=== PATIENT | male | born 1985 | race Caucasian/White ===

== ENCOUNTER 2021-07-25 16:19 | Inpatient (IN) | payer SELFPAY ==
[~2021-07-25] VITALS: Ht 152.4 cm; Wt 71.1 kg
[~2021-07-25 16:19] MED LIST: LORTAB 5/500 501 TAB PO; NO HOME MEDICATIONS
[2021-07-25 17:34] LABS: MEAN CELL VOLUME 107 fl (80.0-100.0); MEAN CORPUSCULAR HGB CONC 35 g/dl (33.0-37.0); MEAN PLATELET VOLUME 9.2 fl (7.4-10.4); PLATELET COUNT 121 K/mm3 (130-400); RED BLOOD COUNT 2.17 M/mm3 (4.20-5.60); REDCELL DISTRIBUTION WIDTH-CV 17.9 % (11.5-14.5)
[2021-07-25 17:48] LABS: HEMATOCRIT 23.3 % (42.0-52.0); HEMOGLOBIN 8.1 g/dl (13.5-18.0); MEAN CORPUSCULAR HEMOGLOBIN 37 pg (27-31)
[2021-07-25 17:54] LABS: ALBUMIN 1.5 gm/dL (3.5-5.0); BILIRUBIN,TOTAL 9.9 mg/dL (0.2-1.2); C-REACTIVE PROTEIN 3.91 mg/dL (0.00-0.50); CREATININE, serum 0.95 mg/dL (0.72-1.25); POTASSIUM 3.9 mmol/L (3.5-4.5); TOTAL PROTEIN 6.4 gm/dL (6.2-8.1)
[2021-07-25 18:00] LABS: TROPONIN-I 0.014 ng/mL (0.00-0.033)
[2021-07-25 18:39] LABS: ANISOCYTOSIS 1+; BAND 20 % (0-10); HYPOCHROMIA 1+; LYMPHOCYTE 4 % (20.0-51.0); NEUTROPHILS 76 % (42.0-75.2); PLATELET ESTIMATE NORMAL (NORMAL); TARGET CELLS 1+
[2021-07-25 19:27] LABS: INR 3.7 (0.8-3.0)
[2021-07-26] VITALS (12 sets, daily range): BP systolic 117–148; BP diastolic 71–87; PULSE 98–115; TEMP 97–98.9
--- NOTE | 2021-07-26 01:26 | NUR ---
PT TO FLOOR PER CART. C/O ABDOMEN PAIN X 1 MONTH. CLAIMS TO THE HAVE STOPPED DRINKING BEER 5 WEEKS AGO. ABD DISTENDED AND TIGHT. PASSING GAS. ORDERS REVIEWED. CLAIMS NO MEDICAL HX OR HOMEMEDS.
[2021-07-26 06:50] LABS: INR 3.7 (0.8-3.0); PROTHROMBIN TIME 41.4 SECONDS (9.7-12.8)
[2021-07-26 06:54] LABS: BASO % 0.2 % (0.0-2.0); EOS # 0.2 K/mm3 (0.0-0.7); GRAN # 13.8 K/mm3 (1.4-6.5); GRAN % 85.6 % (42.2-75.2); LYMPH % 6.1 % (20.0-51.0); MEAN CELL VOLUME 109 fl (80.0-100.0); MEAN CORPUSCULAR HGB CONC 34 g/dl (33.0-37.0); MEAN PLATELET VOLUME 9.9 fl (7.4-10.4); MONO # 1.1 K/mm3 (0.1-0.6); MONO % 6.7 % (1.7-9.3); PLATELET COUNT 97 K/mm3 (130-400); RED BLOOD COUNT 1.83 M/mm3 (4.20-5.60); REDCELL DISTRIBUTION WIDTH-CV 17.6 % (11.5-14.5)
[2021-07-26 07:06] LABS: MEAN CORPUSCULAR HEMOGLOBIN 37 pg (27-31)
[2021-07-26 07:07] LABS: HEMATOCRIT 19.9 % (42.0-52.0)
[2021-07-26 07:08] LABS: HEMOGLOBIN 6.8 g/dl (13.5-18.0)
[2021-07-26 07:12] LABS: ALBUMIN 1.7 gm/dL (3.5-5.0); BILIRUBIN,TOTAL 7.6 mg/dL (0.2-1.2); CALCIUM 6.8 mg/dL (8.4-10.2); POTASSIUM 3.7 mmol/L (3.5-4.5); TOTAL PROTEIN 5.6 gm/dL (6.2-8.1)
--- NOTE | 2021-07-26 08:00 | NUR ---
Patient laying in bed sleeping, easily awakened with verbal command. A&Ox4. VSS. IV CDI. Denies pain and discomfort. Lips cracked and red from bleeding. Will notify doctor to get additional orders. No further needs expressed. Call light within reach
--- NOTE | 2021-07-26 11:34 | NUR ---
First visit from the patent searcher. No needs right now.
--- NOTE | 2021-07-26 15:50 | NUR ---
computer networker met with patient at bedside to discuss discharge plan. Patient currently lives at home alone here in [facility]. He is independent with his activities of daily living and does not utilize any DME at home to assist with mobility. He has no oxygen needs at home. Patient does not currently have a PCP and gets any medications through [facility]. Patient does not have a DPOA-HC established at this time. Patient is unmarried and has no children. Education is provided and patient verbalizes that he is "unwilling" to complete one at this time. Once medically ready, patient is planning on returning home. Discharge plan: Home; patient will need PCP established
--- NOTE | 2021-07-26 16:29 | NUR ---
Per Eladio with financial counseling, patient does not qualify for [facility] but will complete a financial assistance application for the hospital with the patient.
--- NOTE | 2021-07-26 17:32 | NUR ---
Bloos transfusion started, patient A&Ox4. VSS. IV CDI. Denies pain and discomfort. VS monitored per protocol. No further needs expressed. Call light within reach
--- NOTE | 2021-07-26 17:46 | NUR ---
Nurse at the bedside first 15 minutes of blood transfusion. VSS. IV CDI. Denies pain and discomfort. Patient tolerating well. Call light within reach. Will continue to monitor
--- NOTE | 2021-07-26 22:18 | NUR ---
ALERT AND OX4. BLOOD TRANSFUSING AT SHIFT CHANGE AND COMPLETE BY THIS RN. DENIES ANY S/S OF REACTIVE, AFEBRILE. H/H WILL RECHECK. PT INS TO BE NPO AT MIDNIGHT FOR POSSIBLE PARACENTESIS PENDING AM INR LEVEL. DENIES PAIN N/V/D. PM MEDS GIVEN, WORKING ON DINNER. CALL LIGHT WI REACH.
[2021-07-26 22:30] LABS: HEMATOCRIT 23.1 % (42.0-52.0)
[2021-07-27 00:15] VITALS: BP 125/80; PULSE 98; TEMP 97.9
[2021-07-27 04:20] VITALS: BP 126/78; PULSE 98; TEMP 97.5
[2021-07-27 06:46] LABS: MEAN CORPUSCULAR HGB CONC 35 g/dl (33.0-37.0); MEAN PLATELET VOLUME 9.9 fl (7.4-10.4); PLATELET COUNT 102 K/mm3 (130-400); RED BLOOD COUNT 2.15 M/mm3 (4.20-5.60); REDCELL DISTRIBUTION WIDTH-CV 18.9 % (11.5-14.5)
[2021-07-27 06:50] LABS: HEMATOCRIT 22.4 % (42.0-52.0); HEMOGLOBIN 7.8 g/dl (13.5-18.0); MEAN CELL VOLUME 104 fl (80.0-100.0); MEAN CORPUSCULAR HEMOGLOBIN 36 pg (27-31)
[2021-07-27 07:05] LABS: ALBUMIN 1.6 gm/dL (3.5-5.0); BILIRUBIN,TOTAL 6.7 mg/dL (0.2-1.2); CALCIUM 6.9 mg/dL (8.4-10.2); CREATININE, serum 0.83 mg/dL (0.72-1.25); POTASSIUM 3.5 mmol/L (3.5-4.5); TOTAL PROTEIN 5.7 gm/dL (6.2-8.1)
[2021-07-27 07:36] LABS: PROTHROMBIN TIME 34.1 SECONDS (9.7-12.8)
[2021-07-27 08:15] VITALS: BP 128/82; PULSE 102; TEMP 98.2
[2021-07-27 08:54] LABS: BAND 8 % (0-10); EOSINOPHIL 4 % (0-4); LYMPHOCYTE 8 % (20.0-51.0); NEUTROPHILS 73 % (42.0-75.2); TEAR DROP CELLS 1+
--- NOTE | 2021-07-27 08:54 | NUR ---
PATIENT DOWN FOR PARACENTESIS
[2021-07-27 08:55] LABS: PLATELET ESTIMATE DECREASED (NORMAL)
[2021-07-27 10:37] LABS: PERITONEAL -POLYMORPHONUCLEAR 49.6 % (0-25)
[2021-07-27 11:37] VITALS: BP 128/82; PULSE 100; TEMP 98.1
[2021-07-27 16:46] VITALS: BP 120/75; PULSE 92; TEMP 97.9
--- NOTE | 2021-07-27 19:02 | NUR ---
Patient has had an ok day. Para completed. 4L taken off. Albumin infused. Patient denies any pain, discomfort, SOA, or further needs at this time. VSS. Patient A&O. Call light in reach.
[2021-07-27 20:14] VITALS: BP 120/66; PULSE 102; TEMP 98.4
--- NOTE | 2021-07-27 22:01 | NUR ---
Patient assessed around 194. Alert and oriented, and able to make needs known. Denies pain and discomfort. Peripheral INT to left AC. Denies SOB and dyspnea. LS CTA. HRR. BSAx4. No edema. Voices no questions, needs, or concerns at this time. In bed with call light within reach.
[2021-07-28] VITALS (7 sets, daily range): BP systolic 115–136; BP diastolic 74–81; PULSE 87–102; TEMP 97.8–99.3
[2021-07-28 03:45] LABS: COLLECTION METHOD CLEAN CATCH
[2021-07-28 03:55] LABS: SQUAMOUS EPITHELIAL None Seen /hpf (0-10); URINE BACTERIA Rare /hpf (NONE SEEN)
[2021-07-28 03:57] LABS: PH 6 (5-8); URINE APPEARANCE Clear (CLEAR/HAZY); URINE COLOR Yellow (YELLOW); URINE PROTEIN(semi-quant) Negative (NEGATIVE)
[2021-07-28 03:58] LABS: URINE BILIRUBIN Negative (NEGATIVE); URINE BLOOD 3+ (NEGATIVE); URINE GLUCOSE Negative (NEGATIVE); URINE KETONE Negative (NEGATIVE); URINE LEUKOCYTE ESTERASE Negative (NEGATIVE); URINE NITRATE Negative (NEGATIVE)
[2021-07-28 04:08] LABS: CERULOPLASMIN 22 mg/dL (20-60)
--- NOTE | 2021-07-28 06:02 | NUR ---
Patient has denied having pain and discomfort this shift. Voices no questions, needs, or concerns at this time. In bed with call light within reach.
[2021-07-28 06:37] LABS: BASO # 0.1 K/mm3 (0.0-0.2); BASO % 0.6 % (0.0-2.0); EOS # 0.5 K/mm3 (0.0-0.7); EOS % 6.3 % (0.0-4.0); GRAN # 4.6 K/mm3 (1.4-6.5); GRAN % 53.8 % (42.2-75.2); LYMPH # 2.1 K/mm3 (1.2-3.4); LYMPH % 24.6 % (20.0-51.0); MEAN CELL VOLUME 102 fl (80.0-100.0); MEAN CORPUSCULAR HGB CONC 35 g/dl (33.0-37.0); MEAN PLATELET VOLUME 9.3 fl (7.4-10.4); MONO # 1.2 K/mm3 (0.1-0.6); MONO % 13.9 % (1.7-9.3); PLATELET COUNT 87 K/mm3 (130-400); RED BLOOD COUNT 2.28 M/mm3 (4.20-5.60); REDCELL DISTRIBUTION WIDTH-CV 19.4 % (11.5-14.5)
[2021-07-28 06:45] LABS: HEMATOCRIT 23.3 % (42.0-52.0); HEMOGLOBIN 8.1 g/dl (13.5-18.0); MEAN CORPUSCULAR HEMOGLOBIN 36 pg (27-31)
[2021-07-28 06:51] LABS: ALBUMIN 2.3 gm/dL (3.5-5.0); BILIRUBIN,TOTAL 7.1 mg/dL (0.2-1.2); CALCIUM 7.3 mg/dL (8.4-10.2); CREATININE, serum 0.76 mg/dL (0.72-1.25); POTASSIUM 3.2 mmol/L (3.5-4.5); TOTAL PROTEIN 5.6 gm/dL (6.2-8.1)
[2021-07-28 07:26] LABS: INR 3.4 (0.8-3.0); PROTHROMBIN TIME 37.7 SECONDS (9.7-12.8)
--- NOTE | 2021-07-28 09:18 | NUR ---
Shift assessment completed w/ student nurse (Manuel). Patient is independent in the room, has a steady gait, and is A&Ox4. Patient's primary language is [place] Helenian, but patient is fluent in Mongolian. Patient reports mild pain at site of paracentesis from yesterday. Bandaid is still in place, w/ some drainage present. Call light is w/in reach.
[2021-07-28 09:24] LABS: ANA SCREEN with REFLEX Negative (Negative)
--- NOTE | 2021-07-28 17:57 | NUR ---
Patient has rested in bed a majority of the day, did shower independently. Patient has not expressed any concerns this afternoon. Call light remains w/in reach.
[2021-07-29 04:13] VITALS: BP 122/78; PULSE 97; TEMP 98.3
--- NOTE | 2021-07-29 05:23 | NUR ---
PT HAD UNEVENTFUL NIGHT THIS SHIFT. ABDOMINAL DRESSING CHANGED D/T SMALL DRAINAGE. . CALL LIGHT WTIHN REACH.
[2021-07-29 06:52] LABS: BASO # 0.1 K/mm3 (0.0-0.2); BASO % 0.8 % (0.0-2.0); EOS # 0.6 K/mm3 (0.0-0.7); EOS % 7.3 % (0.0-4.0); GRAN # 4.1 K/mm3 (1.4-6.5); GRAN % 47.2 % (42.2-75.2); LYMPH # 2.5 K/mm3 (1.2-3.4); MEAN CELL VOLUME 104 fl (80.0-100.0); MEAN CORPUSCULAR HGB CONC 35 g/dl (33.0-37.0); MEAN PLATELET VOLUME 10.1 fl (7.4-10.4); MONO # 1.3 K/mm3 (0.1-0.6); MONO % 14.5 % (1.7-9.3); PLATELET COUNT 80 K/mm3 (130-400); RED BLOOD COUNT 2.33 M/mm3 (4.20-5.60); REDCELL DISTRIBUTION WIDTH-CV 19.8 % (11.5-14.5)
[2021-07-29 06:53] LABS: PROTHROMBIN TIME 33.1 SECONDS (9.7-12.8)
[2021-07-29 06:57] LABS: HEMATOCRIT 24.3 % (42.0-52.0); HEMOGLOBIN 8.4 g/dl (13.5-18.0); MEAN CORPUSCULAR HEMOGLOBIN 36 pg (27-31)
[2021-07-29 07:13] LABS: ALBUMIN 2.3 gm/dL (3.5-5.0); BILIRUBIN,TOTAL 7.9 mg/dL (0.2-1.2); CALCIUM 7.2 mg/dL (8.4-10.2); CREATININE, serum 0.75 mg/dL (0.72-1.25); POTASSIUM 3.8 mmol/L (3.5-4.5)
[2021-07-29 08:00] VITALS: BP 118/72; PULSE 99; TEMP 98.6
[2021-07-29 11:12] VITALS: BP 130/83; PULSE 99; TEMP 98.1
--- NOTE | 2021-07-29 14:07 | NUR ---
Shift assessment completed w/ student nurse. This RN agrees w/ the student nurse's assessment. Patient is A&Ox4, independent in the room. Patient has not expressed any complaints or concerns. Call light is w/in reach.
[2021-07-29 15:54] VITALS: BP 122/65; PULSE 95; TEMP 98
[2021-07-29 20:02] VITALS: BP 118/75; PULSE 102; TEMP 99
[2021-07-29 23:34] VITALS: BP 135/60; PULSE 100; TEMP 99.4
[2021-07-30 04:10] VITALS: BP 122/77; PULSE 95; TEMP 98.5
--- NOTE | 2021-07-30 06:21 | NUR ---
PT HAD LOW GRADE FEVER AT BEGINING OF SHIFT. RESOLVED BY LOWERING AC AND TAKEN OFF BLANKETS. NO CLNICAL CHANGES OVERNIGHT. CALL LIGHT WITHIN REACH.
[2021-07-30 07:24] LABS: ALBUMIN 2.3 gm/dL (3.5-5.0); BILIRUBIN,TOTAL 8.1 mg/dL (0.2-1.2); CALCIUM 7.5 mg/dL (8.4-10.2); CREATININE, serum 0.75 mg/dL (0.72-1.25); POTASSIUM 3.6 mmol/L (3.5-4.5)
[2021-07-30 07:36] LABS: INR 2.9 (0.8-3.0); PROTHROMBIN TIME 32.5 SECONDS (9.7-12.8)
[2021-07-30 08:26] VITALS: BP 120/69; PULSE 93; TEMP 98.4
[2021-07-30 08:28] LABS: MEAN CELL VOLUME 105 fl (80.0-100.0); MEAN CORPUSCULAR HGB CONC 34 g/dl (33.0-37.0); MEAN PLATELET VOLUME 10.6 fl (7.4-10.4); PLATELET COUNT 74 K/mm3 (130-400); RED BLOOD COUNT 2.37 M/mm3 (4.20-5.60); REDCELL DISTRIBUTION WIDTH-CV 19.8 % (11.5-14.5)
[2021-07-30 08:29] LABS: HEMATOCRIT 24.8 % (42.0-52.0); HEMOGLOBIN 8.5 g/dl (13.5-18.0); MEAN CORPUSCULAR HEMOGLOBIN 36 pg (27-31)
--- NOTE | 2021-07-30 09:36 | NUR ---
Scheduled medications given. Shift assessment performed. VSS. Patient A&Ox4. Patient ABD distented. Soft upon palpations. Coarse crackles noted in right lower lobe. Patient denies any pain, discomfort, SOA, or further needs at this time. Call light in reach.
[2021-07-30 12:00] VITALS: BP 128/76; PULSE 98; TEMP 98.3
[2021-07-30 12:12] LABS: ANTISMOOTH MUSCLE ANTIBODY Negative (Negative)
[2021-07-30 12:48] LABS: EOSINOPHIL 11 % (0-4); LYMPHOCYTE 16 % (20.0-51.0); NEUTROPHILS 66 % (42.0-75.2)
[2021-07-30 12:49] LABS: ANISOCYTOSIS 2+; PLATELET ESTIMATE DECREASED (NORMAL)
[2021-07-30 17:00] VITALS: BP 120/80; PULSE 104; TEMP 98.3
--- NOTE | 2021-07-30 18:06 | NUR ---
Patient has had an uneventful day. Denies any pain, discomfort, SOA, or further needs at this time. VSS. Patient A&O. Call light in reach.
[2021-07-30 20:50] VITALS: BP 121/86; PULSE 107; TEMP 99
[2021-07-30 23:23] VITALS: BP 126/82; PULSE 102; TEMP 99
[2021-07-31 04:16] VITALS: BP 123/72; PULSE 100; TEMP 98.5
--- NOTE | 2021-07-31 06:45 | NUR ---
PT REMINDED TO BECAREFUL WITH FLUID INTAKE PT REPORTED DRINKING 4L OF FLUID IN A SHORT PERIOD OF TIME AND IS HAVING FRIENDS DROP OFF CHIPOTLE WHICH IS HIGH IN SODIUM. PT REMINDED OF LOW NA DIET. ALL MEDICATIONS ADMINISTERED ORDERED. CALL LIGHT WITHIN REACH.
[2021-07-31 08:24] VITALS: BP 121/73; PULSE 99; TEMP 98.4
--- NOTE | 2021-07-31 09:04 | NUR ---
Scheduled medications given. Shift assessment performed. VSS. Patient A&O. Basilar crackles noted. Patient denies any pain, discomfort, SOA, or further needs at this time. Call light in reach.
[2021-07-31 11:13] VITALS: BP 120/72; PULSE 104; TEMP 99.1
[2021-07-31 16:17] VITALS: BP 116/75; PULSE 102; TEMP 99.1
--- NOTE | 2021-07-31 18:35 | NUR ---
Patient had an uneventful day. Denies any pain, discomfort, SOA, or further needs at this time. VSS. Patient A&O. Call light in reach.
--- NOTE | 2021-07-31 19:41 | NUR ---
CHANGE OF SHIFT REPORT RECEIVED FROM DAY SHIFT RN.
[2021-07-31 20:05] VITALS: BP 120/80; PULSE 96; TEMP 98.8
[2021-08-01 00:27] VITALS: BP 115/75; PULSE 105; TEMP 99
[2021-08-01 04:50] VITALS: BP 128/76; PULSE 98; TEMP 98.4
[2021-08-01 06:47] LABS: MEAN CELL VOLUME 102 fl (80.0-100.0); MEAN CORPUSCULAR HGB CONC 35 g/dl (33.0-37.0); MEAN PLATELET VOLUME 9.8 fl (7.4-10.4); PLATELET COUNT 73 K/mm3 (130-400); RED BLOOD COUNT 2.31 M/mm3 (4.20-5.60); REDCELL DISTRIBUTION WIDTH-CV 19.2 % (11.5-14.5)
[2021-08-01 06:49] LABS: HEMATOCRIT 23.6 % (42.0-52.0); HEMOGLOBIN 8.3 g/dl (13.5-18.0); MEAN CORPUSCULAR HEMOGLOBIN 36 pg (27-31)
[2021-08-01 06:51] LABS: INR 2.7 (0.8-3.0); PROTHROMBIN TIME 30.3 SECONDS (9.7-12.8)
--- NOTE | 2021-08-01 07:09 | NUR ---
CHANGE OF SHIFT REPORT GIVEN TO DAY SHIFT RNDEWEY.
[2021-08-01 07:14] LABS: ALBUMIN 2.2 gm/dL (3.5-5.0); CALCIUM 7.5 mg/dL (8.4-10.2); CREATININE, serum 0.73 mg/dL (0.72-1.25); POTASSIUM 3.5 mmol/L (3.5-4.5); TOTAL PROTEIN 6.2 gm/dL (6.2-8.1)
[2021-08-01 07:46] LABS: BAND 4 % (0-10); BURR CELLS 1+; EOSINOPHIL 6 % (0-4); LYMPHOCYTE 14 % (20.0-51.0); NEUTROPHILS 69 % (42.0-75.2); OVALOCYTES 1+; PLATELET ESTIMATE NORMAL (NORMAL)
[2021-08-01 07:47] LABS: ANISOCYTOSIS 1+; SCHISTOCYTES 1+; TARGET CELLS 1+
[2021-08-01 08:11] VITALS: BP 126/80; PULSE 99; TEMP 98
--- NOTE | 2021-08-01 08:15 | NUR ---
Shift assessment complete. Pt resting in bed. A&Ox4. Heart RRR. Lungs CTA. Abdomen firm and distended. Bowel sounds active all quadrants. Mepilex to LLQ over paracentesis puncture site, site CDI. Reports feeling "much better than when I came in." Denies pain, nausea, or other concerns. Call light in reach.
[2021-08-01] MEDS ORDERED: ALDACTONE 100M100 MG PO (10:07)
[2021-08-01] MEDS ORDERED: LASIX 40MG TABL40 MG PO (10:07)
[2021-08-01] MEDS ORDERED: FOLIC ACID 11 MG/TA1 PO (10:08)
[2021-08-01] MEDS ORDERED: CENTRUM1 TA1 PO (10:09)
[2021-08-01] MEDS ORDERED: THIAMINE 1100 MG/TAB PO (10:09)
[2021-08-01] MEDS ORDERED: BACTRIM DS 8001 TAB PO (10:11)
--- NOTE | 2021-08-01 12:30 | NUR ---
Discharge instructions discussed w/pt and all questions answered. IV to left AC removed w/tip intact. Pressure held to site for 10 minutes due to bleeding. Pressure dressing placed to site. Pt dressed and all belongings gathered. Unable to get ahold of anyone to pick pt up, social work notified and will arrange for taxi knot picker cloth.
--- NOTE | 2021-08-01 13:45 | NUR ---
Pt escorted out at this time w/all belongings and assisted into taxi w/cab voucher.
--- NOTE | 2021-08-01 13:50 | NUR ---
The patient needed transport home. SW provided the patient with a taxi voucher. No additional needs at this time.
== END 2021-08-01 13:45 | disposition home or self-care (01) | DRG 872 ==
LOC: COL.ER 16:19 → MEDICAL 19:28
PROVIDERS: Internal Medicine; Internal Medicine Gastroenterology; Nurse Practitioner; Physician Assistant; Student in an Organized Health Care Education/Training Program; ADMIT Internal Medicine
PROC: 30233N1 Transfusion of Nonautologous Red Blood Cells into Peripheral Vein, Percutaneous Approach (ICD-10-PCS; principal; 2021-07-25)
PROC: 0W9G3ZZ Drainage of Peritoneal Cavity, Percutaneous Approach (ICD-10-PCS; 2021-07-27)
DX: A41.89 Other specified sepsis (principal); E87.1 Hypo-osmolality and hyponatremia; K70.31 Alcoholic cirrhosis of liver with ascites; I86.4 Gastric varices; D50.0 Iron deficiency anemia secondary to blood loss (chronic); K70.10 Alcoholic hepatitis without ascites; D69.6 Thrombocytopenia, unspecified; D53.9 Nutritional anemia, unspecified; E87.6 Hypokalemia; R00.0 Tachycardia, unspecified; H54.62 Unqualified visual loss, left eye, normal vision right eye
CPT/HCPCS: 99223-AI; 99232-AI; 99233-AI; 99239; C9113; J0696; J1940; J3430; J7030; J7050; J7512; P9016; P9047; Q9967

== ENCOUNTER 2021-08-22 10:19 | Emergency (ER) | payer SELFPAY ==
[~2021-08-22] VITALS: Ht 144.8 cm; Wt 70.5 kg
[~2021-08-22 10:19] MED LIST changes: +ALDACTONE 100M100 MG PO; +BACTRIM DS 8001 TAB PO; +CENTRUM1 TA1 PO; +FOLIC ACID 11 MG/TA1 PO; +LASIX 40MG TABL40 MG PO; +THIAMINE 1100 MG/TAB PO
[2021-08-22 10:28] VITALS: TEMP 98
[2021-08-22 10:56] LABS: BASO # 0.1 K/mm3 (0.0-0.2); BASO % 0.7 % (0.0-2.0); EOS # 0.5 K/mm3 (0.0-0.7); GRAN # 5.7 K/mm3 (1.4-6.5); LYMPH % 20.9 % (20.0-51.0); MEAN CELL VOLUME 108 fl (80.0-100.0); MEAN CORPUSCULAR HGB CONC 35 g/dl (33.0-37.0); MEAN PLATELET VOLUME 9.1 fl (7.4-10.4); MONO # 1.1 K/mm3 (0.1-0.6); MONO % 11.8 % (1.7-9.3); PLATELET COUNT 109 K/mm3 (130-400); RED BLOOD COUNT 2.22 M/mm3 (4.20-5.60); REDCELL DISTRIBUTION WIDTH-CV 17.9 % (11.5-14.5)
[2021-08-22 11:00] LABS: HEMATOCRIT 23.9 % (42.0-52.0); HEMOGLOBIN 8.3 g/dl (13.5-18.0); MEAN CORPUSCULAR HEMOGLOBIN 37 pg (27-31)
[2021-08-22 11:12] LABS: ALBUMIN 2.1 gm/dL (3.5-5.0); BILIRUBIN,TOTAL 10.5 mg/dL (0.2-1.2); C-REACTIVE PROTEIN 1.57 mg/dL (0.00-0.50); CALCIUM 7.4 mg/dL (8.4-10.2); CREATININE, serum 0.72 mg/dL (0.72-1.25); POTASSIUM 3.5 mmol/L (3.5-4.5); TOTAL PROTEIN 6.5 gm/dL (6.2-8.1)
[2021-08-22 11:22] LABS: PROTHROMBIN TIME 33.7 SECONDS (9.7-12.8)
[2021-08-22] MEDS ORDERED: NORCO 325 MG-51 TAB PO (14:13)
[2021-08-22 14:37] VITALS: BP 148/95; PULSE 99
[2021-08-29] MEDS ORDERED: THIAMINE 1100 MG/TAB PO (13:40)
[2021-08-29] MEDS ORDERED: LASIX 40MG TABL40 MG PO (13:40)
[2021-08-29] MEDS ORDERED: ALDACTONE 100M100 MG PO (13:40)
[2021-08-29] MEDS ORDERED: CENTRUM1 TA1 PO (13:40)
[2021-08-29] MEDS ORDERED: FOLIC ACID 11 MG/TA1 PO (13:40)
== END 2021-08-22 14:37 | disposition home or self-care (01) ==
LOC: COL.ER 10:19
PROVIDERS: Nurse Practitioner
DX: K74.60 Unspecified cirrhosis of liver (principal); M79.89 Other specified soft tissue disorders; R58 Hemorrhage, not elsewhere classified